=== PATIENT | male | born 1995 | race African-American/Black ===

== ENCOUNTER 2019-01-11 02:21 | Inpatient (IN) ==
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
[2019-01-11 02:51] LABS: Basophils % 0.3 %; Eosinophils % 0.3 %; Hematocrit 44.9 % (37.5-50.1); Hemoglobin 15.7 g/dL (12.9-16.9); Immature Granulocytes % 0.2 % (0-4); Lymphocytes # 1.4 K/mcL (0.6-4.6); Lymphocytes % 14.8 %; Mean Corpuscular Hemoglobin 30.8 pg (28.0-33.3); Monocytes # 0.6 K/mcL (0.0-1.3); Monocytes % 6.3 %; Neutrophils # 7.5 K/mcL (1.6-8.9); Platelet Count 191 K/mcL (140-400); Red Cell Distribution Width 12.4 % (11.5-14.5); Segmented Neutrophils % 78.1 %; White Blood Count 9.6 K/mcL (4.3-11.1)
[2019-01-11 03:10] LABS: Acetaminophen < 10 mcg/mL (10-20); Alanine Aminotransferase 17 Units/L (7-52); Albumin 4.6 g/dL (3.5-5.7); Albumin/Globulin Ratio 1.6 (1.1-2.2); Alkaline Phosphatase 82 Units/L (34-104); Aspartate Amino Transferase 24 Units/L (13-39); BUN/Creatinine Ratio 11 (6-26); Bilirubin,Direct 0.1 mg/dL (0.0-0.2); Bilirubin,Indirect 0.3 mg/dL (0.0-1.2); Bilirubin,Total 0.4 mg/dL (0.3-1.0); Blood Urea Nitrogen 13 mg/dL (6-20); Calcium 9.5 mg/dL (8.6-10.3); Carbon Dioxide 22 mEq/L (23-29); Chloride 100 mEq/L (98-107); Ethanol 141 mg/dL (Less than 10); Globulin 2.9 g/dL (2.4-3.5); Glucose 100 mg/dL (70-105); Osmolality,Calculated 292 (280-300); Potassium 3.6 mEq/L (3.5-5.1); Salicylate < 2.5 mg/dL (15.0-30.0); Sodium 141 mEq/L (136-145); Total Protein 7.5 g/dL (6.4-8.9); eGFR For African Americans > 60 (> 60); eGFR For Non-African Americans > 60 (> 60)
[2019-01-11 03:38] LABS: Amphetamine Screen,Urine Negative ng/mL (Cutoff=1000); Barbiturate Screen,Urine Negative ng/mL (Cutoff=200); Benzodiazepines Screen,Urine Negative ng/mL (Cutoff=200); Cannabinoid Screen,Urine Positive ng/mL (Cutoff = 50); Cocaine Screen,Urine Negative ng/mL (Cutoff= 300); Opiate Screen,Urine Negative ng/mL (Cutoff=300); Phencyclidine Screen,Urine Negative ng/mL (Cutoff=25)
[2019-01-11] MEDS ORDERED: Ibuprofen 800 MG TABLET PO ONE (07:49)
--- NOTE | 2019-01-11 08:10 | Emergency Department Note ---
Disposition Clinical Impression: Homicidal ideation Depression Qualifiers: Depression Type: other depression Qualified Code(s): F32.89 - Other specified depressive episodes Alcohol intoxication Qualifiers: Complication of substance-induced condition: uncomplicated Qualified Code(s): F10.920 - Alcohol use, unspecified with intoxication, uncomplicated Disposition: Still a Patient Condition: Fair Referrals: NONE,PCP [Primary Care Provider] - Time of Disposition: 13:18 Psych HPI - General Chief Complaint: ED Medical Clearance Stated Complaint: SI/HI Time Seen by Provider: 01/11/19 02:28 Source: patient Mode of arrival: private vehicle - History of Present Illness HPI Narrative: I did assume the case at 0 700, did review the patient's note, agreed history of present illness and review of systems, and examination. The patient however does have some pain also to the right foot on examination. This is over the lateral aspect of the right foot, x-ray has been ordered. The patient did have case discussed with psychiatric services here in the hospital. They are concerned about his overall well being and continued suicidal ideation however the patient is a alcoholic. The patient does drink on a daily basis they are concerned about him going through withdrawal and detox in the psychiatric floor, they wondered if the patient could be admitted to the medical service. The patient states that he feels he is calm down here in the emergency room. The patient still voices somehow homicidal ideation however as well. The patient at this point in time is going to be admitted to the hospitalist service in stable condition. He is overall medically clear in the emergency room however he does have the risk of possible withdrawal from alcohol. Case was discussed with psychiatry they requested admission to the medical team secondary to possible risk of alcohol withdrawal, however the patient is not actively withdrawing from alcohol. The patient at this point I did have case discussed with the hospitalist as well. They are not going to admit the patient, they will consult if needed from a standpoint on the psychiatric floor. However, at this point in time the patient is resting comfortably without signs of medical withdrawal and will be admitted to psychiatry. Final impression 1. Suicidal ideation 2. Depression 3. homicidal ideation Improves with: none Worsens with: alcohol Associated symptoms: Reports: denies other symptoms Treatments prior to arrival: none - Related Data Home Medications Medication Instructions Recorded Confirmed No Known Home Drugs 01/11/19 01/11/19 Allergies Allergy/AdvReac Type Severity Reaction Status Date / Time No Known Allergies Allergy Verified 08/16/18 16:08 Constitutional: Reports: as per HPI Eyes: Reports: as per HPI ENT ED: Reports: as per HPI Cardiovascular: Reports: as per HPI Respiratory: Reports: as per HPI Gastrointestinal: Reports: as per HPI Genitourinary: Reports: as per HPI Musculoskeletal: Reports: other (Right hand pain) Integumentary: Reports: abrasion (Left hand) Neurological: Reports: as per HPI Psychiatric: Reports: depression, suicidal thoughts, homicidal thoughts Endocrine: Reports: as per HPI Hematological/Lymphatic: Reports: as per HPI Allergic/Immunologic: Reports: as per HPI Past Medical History - Past Medical History Medical history: Reports: hypertension Surgical history: Reports: no surgical history Psychiatric history: Reports: anxiety, depression - Social History Smoking Status: Current every day smoker Smokeless Tobacco Status: No Alcohol use: Reports: occasionally, heavy, recent Drug use: Reports: marijuana Physical Exam - General Limitations: no limitations General appearance: alert Course Vital Signs Temperature 98.6 F 01/11/19 02:41 Pulse Rate 93 01/11/19 02:41 Respiratory Rate 20 01/11/19 02:41 Blood Pressure 151/78 01/11/19 02:41 O2 Sat by Pulse Oximetry 96 01/11/19 02:41 Temperature 98.7 F 01/11/19 11:06 Pulse Rate 82 01/11/19 11:06 Respiratory Rate 16 01/11/19 11:06 Blood Pressure 131/80 01/11/19 11:06 O2 Sat by Pulse Oximetry 96 01/11/19 11:06 Oxygen Delivery Oxygen Delivery Room Air Psych - Lab Data Result diagrams: 01/11/19 02:40 01/11/19 02:40 Lab Results 01/11/19 01/11/19 01/11/19 Range/Units 02:40 02:40 03:05 WBC 9.6 (4.3-11.1) K/mcL RBC 5.10 (4.19-5.50) M/mcL Hgb 15.7 (12.9-16.9) g/dL Hct 44.9 (37.5-50.1) % MCV 88.0 (83.0-100.0) fL MCH 30.8 (28.0-33.3) pg MCHC 35.0 (31.6-35.5) g/dL RDW 12.4 (11.5-14.5) % Plt Count 191 (140-400) K/mcL MPV 12.0 (9.4-12.4) fL Immature Gran % 0.2 (0-4) % Seg Neutrophils % 78.1 % Lymphocytes % 14.8 % Monocytes % 6.3 % Eosinophils % 0.3 % Basophils % 0.3 % Neutrophils # 7.5 (1.6-8.9) K/mcL Lymphocytes # 1.4 (0.6-4.6) K/mcL Monocytes # 0.6 (0.0-1.3) K/mcL Eosinophils # 0.0 (0.0-0.6) K/mcL Basophils # 0.0 (0.0-0.2) K/mcL Sodium 141 (136-145) mEq/L Potassium 3.6 (3.5-5.1) mEq/L Chloride 100 (98-107) mEq/L Carbon Dioxide 22 L (23-29) mEq/L BUN 13 (6-20) mg/dL Creatinine 1.22 (0.70-1.30) mg/dL Est GFR ( Amer) > 60 (> 60) Est GFR (Non-Af Amer) > 60 (> 60) BUN/Creatinine Ratio 11 (6-26) Glucose 100 (70-105) mg/dL Calculated Osmolality 292 (280-300) Calcium 9.5 (8.6-10.3) mg/dL Total Bilirubin 0.4 (0.3-1.0) mg/dL Direct Bilirubin 0.1 (0.0-0.2) mg/dL Indirect Bilirubin 0.3 (0.0-1.2) mg/dL AST 24 (13-39) Units/L ALT 17 (7-52) Units/L Alkaline Phosphatase 82 (34-104) Units/L Serum Total Protein 7.5 (6.4-8.9) g/dL Albumin 4.6 (3.5-5.7) g/dL Globulin 2.9 (2.4-3.5) g/dL Albumin/Globulin Ratio 1.6 (1.1-2.2) Salicylates < 2.5 L (15.0-30.0) mg/dL Urine Opiates Screen Negative (Zvhmoo=533) ng/mL Ur Buprenorphine Scrn Negative (Cutoff=5) ng/mL Acetaminophen < 10 L (10-20) mcg/mL Ur Barbiturates Screen Negative (Kqagdb=433) ng/mL Ur Phencyclidine Scrn Negative (Cutoff=25) ng/mL Ur Amphetamines Screen Negative (Xsgwco=6045) ng/mL U Benzodiazepines Scrn Negative (Jngfrm=765) ng/mL Urine Cocaine Screen Negative (Cutoff= 300) ng/mL U Marijuana (THC) Screen Positive H (Cutoff = 50) ng/mL Ur Drug Screen Interp See Below Ethyl Alcohol 141 H (Less than 10) mg/dL 01/11/19 01/11/19 01/11/19 Range/Units 05:23 06:23 12:00 WBC (4.3-11.1) K/mcL RBC (4.19-5.50) M/mcL Hgb (12.9-16.9) g/dL Hct (37.5-50.1) % MCV (83.0-100.0) fL MCH (28.0-33.3) pg MCHC (31.6-35.5) g/dL RDW (11.5-14.5) % Plt Count (140-400) K/mcL MPV (9.4-12.4) fL Immature Gran % (0-4) % Seg Neutrophils % % Lymphocytes % % Monocytes % % Eosinophils % % Basophils % % Neutrophils # (1.6-8.9) K/mcL Lymphocytes # (0.6-4.6) K/mcL Monocytes # (0.0-1.3) K/mcL Eosinophils # (0.0-0.6) K/mcL Basophils # (0.0-0.2) K/mcL Sodium (136-145) mEq/L Potassium (3.5-5.1) mEq/L Chloride (98-107) mEq/L Carbon Dioxide (23-29) mEq/L BUN (6-20) mg/dL Creatinine (0.70-1.30) mg/dL Est GFR ( Amer) (> 60) Est GFR (Non-Af Amer) (> 60) BUN/Creatinine Ratio (6-26) Glucose (70-105) mg/dL Calculated Osmolality (280-300) Calcium (8.6-10.3) mg/dL Total Bilirubin (0.3-1.0) mg/dL Direct Bilirubin (0.0-0.2) mg/dL Indirect Bilirubin (0.0-1.2) mg/dL AST (13-39) Units/L ALT (7-52) Units/L Alkaline Phosphatase (34-104) Units/L Serum Total Protein (6.4-8.9) g/dL Albumin (3.5-5.7) g/dL Globulin (2.4-3.5) g/dL Albumin/Globulin Ratio (1.1-2.2) Salicylates (15.0-30.0) mg/dL Urine Opiates Screen (Bpcvnd=502) ng/mL Ur Buprenorphine Scrn (Cutoff=5) ng/mL Acetaminophen (10-20) mcg/mL Ur Barbiturates Screen (Iqlqzc=828) ng/mL Ur Phencyclidine Scrn (Cutoff=25) ng/mL Ur Amphetamines Screen (Cblabt=4353) ng/mL U Benzodiazepines Scrn (Pmcmkc=119) ng/mL Urine Cocaine Screen (Cutoff= 300) ng/mL U Marijuana (THC) Screen (Cutoff = 50) ng/mL Ur Drug Screen Interp Ethyl Alcohol 94 H 77 H < 10 (Less than 10) mg/dL Psychiatric Medical Clearance - Medical Clearance Checklist Medical History: No Social History Section defined Current Vitals: Last Vital Signs Temp 98.7 F 01/11/19 11:06 Pulse 82 01/11/19 11:06 Resp 16 01/11/19 11:06 BP 131/80 01/11/19 11:06 Pulse Ox 96 01/11/19 11:06 Psychiatric Lab Panel: Drug Levels and Toxicity 01/11/19 01/11/19 01/11/19 02:40 03:05 05:23 Urine Opiates Screen Negative Acetaminophen < 10 L Ur Barbiturates Screen Negative Ur Phencyclidine Scrn Negative Ur Amphetamines Screen Negative U Benzodiazepines Scrn Negative Urine Cocaine Screen Negative U Marijuana (THC) Screen Positive H Ethyl Alcohol 141 H 94 H 01/11/19 01/11/19 06:23 12:00 Urine Opiates Screen Acetaminophen Ur Barbiturates Screen Ur Phencyclidine Scrn Ur Amphetamines Screen U Benzodiazepines Scrn Urine Cocaine Screen U Marijuana (THC) Screen Ethyl Alcohol 77 H < 10 Abnormal Labs: Abnormal lab results Carbon Dioxide 22 mEq/L (23-29) L 01/11/19 02:40 Salicylates < 2.5 mg/dL (15.0-30.0) L 01/11/19 02:40 Acetaminophen < 10 mcg/mL (10-20) L 01/11/19 02:40 U Marijuana (THC) Screen Positive ng/mL (Cutoff = 50) H 01/11/19 03:05 Ethyl Alcohol 77 mg/dL (Less than 10) H 01/11/19 06:23 Statement of Medical Clearance: I have evaluated the patient, reviewed diagnostic information, and certify that the patient's medical condition is sufficiently stable that transfer to the psychiatric unit does not pose a significant risk of deterioration.
--- NOTE | 2019-01-11 14:11 | Event Note ---
Date of Encounter: 01/11/19 Time of Encounter: 13:41 I was contacted by the ER staff to require an invalid about admitting the patient to acute hospital bed for the possibility of alcohol withdrawal. I reviewed the patient's chart and the patient's he was score has been 0 since time of the admission , he last drink was last night around 10:00 PM. The patient also stated that he never had a history of alcohol withdrawal and he has no comorbidities . The patient stated that in several occasion he did not drink for more than 48 hours or almost a week with no withdrawal symptoms. Repeat alcohol level was less than 10 . I contacted care management team as well as psych testing consultant and we will discuss the plan of care. There was a clinic in agreement that the current clinical evaluation of the patient would not warrant an acute bed assignment. Given that 14 hours after last alcohol drink see was score is 0, the patient could be managed on the psych unit. Dr. Allen graciously was agreeable to accept the patient to the psych unit . We will be happy to consult if any other urgent medical issue arise .
[2019-01-11] MEDS ORDERED: Mag Hydrox/Al Hydrox/Simeth 30 ML UDC PO PRN (16:10)
[2019-01-11] MEDS ORDERED: Acetaminophen 325 MG TABLET PO PRN (16:10)
[2019-01-11] MEDS ORDERED: MOM Conc 10 ML UD.LIQ PO PRN (16:10)
[2019-01-11] MEDS ORDERED: *HR* LORazepam 1 MG TABLET PO PRN ×2 (16:10→16:29)
[2019-01-11] MEDS ORDERED: Haloperidol Lactate 5 MG/ML VIAL IM PRN (16:10)
[2019-01-11] MEDS ORDERED: *HR* LORazepam 2 MG/ML VIAL IM PRN (16:10)
[2019-01-11] MEDS: traZODone 50 MG TABLET PO PRN (21:22)
[2019-01-11] MEDS: hydrOXYzine pamoate 25 MG CAPSULE PO PRN (21:22)
[2019-01-12] MEDS: Folic Acid 1 MG TABLET PO SCH (09:09)
[2019-01-12] MEDS: Thiamine (B-1) 100 MG TABLET PO SCH (09:09)
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
[2019-01-12] MEDS: hydrOXYzine pamoate 25 MG CAPSULE PO PRN (22:00)
[2019-01-12] MEDS: traZODone 50 MG TABLET PO PRN (22:00)
[2019-01-13] MEDS: Folic Acid 1 MG TABLET PO SCH (09:52)
[2019-01-13] MEDS: Thiamine (B-1) 100 MG TABLET PO SCH (09:52)
[2019-01-13 10:06] VITALS: BP 132/77
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
== END 2019-01-13 15:20 | disposition home or self-care (01) | DRG 885 ==
LOC: EMEROOARM 02:21 → 1ANU 15:54
PROVIDERS: ADMIT Psychiatry & Neurology Psychiatry; ATTEND Psychiatry & Neurology Psychiatry

== ENCOUNTER 2022-02-13 19:34 | Inpatient (IN) ==
[2022-02-13 20:15] LABS: Amorphous Sediment,Urine Few per hpf (None-Few); Bacteria,Urine Few per hpf (None-Few); Bilirubin,Urine Negative (Negative); Blood,Urine Negative (Negative); Clarity,Urine Ex.Turbid (Clear); Color,Urine Yellow (Yellow); Glucose,Urine (UA) Normal (Normal); Ketones,Urine 20 mg/dL (Negative); Leukocyte Esterase,Urine Negative (Negative); Mucus,Urine Many per lpf (None-Few); Nitrite,Urine Negative (Negative); Protein,Urine 50 mg/dL (Neg-Trace); Specific Gravity,Urine > 1.030 (1.010-1.025); Squamous Epithelial Cell,Urine Few per hpf (None-Few); WBC,Urine 0-3 per hpf (0-3)
[2022-02-13 20:18] LABS: Basophils % 0.4 %; Eosinophils # 0.1 K/mcL (0.0-0.6); Eosinophils % 0.6 %; Hematocrit 50.9 % (37.5-50.1); Hemoglobin 17.4 g/dL (12.9-16.9); Immature Granulocytes % 0.2 % (0-4); Lymphocytes # 1.3 K/mcL (0.6-4.6); Mean Corpuscular HGB Conc 34.2 g/dL (31.6-35.5); Mean Corpuscular Hemoglobin 30.3 pg (28.0-33.3); Mean Corpuscular Volume 88.7 fL (83.0-100.0); Mean Platelet Volume 11.8 fL (9.4-12.4); Monocytes # 0.8 K/mcL (0.0-1.3); Monocytes % 7.6 %; Neutrophils # 8.4 K/mcL (1.6-8.9); Platelet Count 220 K/mcL (140-400); Red Blood Count 5.74 M/mcL (4.19-5.50); Red Cell Distribution Width 12.8 % (11.5-14.5); Segmented Neutrophils % 79.2 %; White Blood Count 10.5 K/mcL (4.3-11.1)
[2022-02-13 20:28] LABS: Amphetamine Screen,Urine Negative ng/mL (Cutoff=1000); Barbiturate Screen,Urine Negative ng/mL (Cutoff=200); Benzodiazepines Screen,Urine Negative ng/mL (Cutoff=200); Cannabinoid Screen,Urine Positive ng/mL (Cutoff = 50); Cocaine Screen,Urine Negative ng/mL (Cutoff= 300); Opiate Screen,Urine Negative ng/mL (Cutoff=300); Phencyclidine Screen,Urine Negative ng/mL (Cutoff=25)
[2022-02-13 20:41] LABS: Acetaminophen < 10 mcg/mL (10-20); BUN/Creatinine Ratio 9 (6-26); Blood Urea Nitrogen 9 mg/dL (6-20); Calcium 9.5 mg/dL (8.6-10.3); Carbon Dioxide 28 mEq/L (23-29); Chloride 102 mEq/L (98-107); Glucose 112 mg/dL (70-105); Osmolality,Calculated 287 (280-300); Salicylate < 2.5 mg/dL (15.0-30.0); Sodium 139 mEq/L (136-145)
[2022-02-13 20:44] LABS: Ethanol 16 mg/dL (Less than 10)
[2022-02-13 20:56] LABS: Influenza A PCR Negative (Negative); Influenza B PCR Negative (Negative); Resp. Syncytial Virus PCR Negative (Negative)
[2022-02-13 20:57] LABS: SARS-CoV-2 by PCR (In House) Negative (Negative)
[2022-02-13] MEDS ORDERED: haloperidoL 5 MG TABLET PO PRN (23:03)
[2022-02-13] MEDS ORDERED: *HR* LORazepam 1 MG TABLET PO PRN (23:03)
[2022-02-13] MEDS ORDERED: Haloperidol Lactate 5 MG/ML VIAL IM PRN (23:03)
[2022-02-13] MEDS ORDERED: *HR* LORazepam 2 MG/ML VIAL IM PRN (23:03)
[2022-02-14] MEDS: hydrOXYzine pamoate 25 MG CAPSULE PO PRN (01:39)
[2022-02-14] MEDS: Acetaminophen 325 MG TABLET PO PRN ×2 (01:39→14:49)
[2022-02-14] MEDS: traZODone 50 MG TABLET PO PRN (02:04)
[2022-02-14] MEDS ORDERED: Mag Hydrox/Al Hydrox/Simeth 30 ML UDC PO PRN (08:11)
[2022-02-14] MEDS ORDERED: MOM Conc 10 ML UD.LIQ PO PRN (08:11)
[2022-02-14 12:31] LABS: Albumin 4.6 g/dL (3.5-5.7); Albumin/Globulin Ratio 1.5 (1.1-2.2); Bilirubin,Direct 0.2 mg/dL (0.0-0.2); Bilirubin,Indirect 0.7 mg/dL (0.0-1.0); Bilirubin,Total 0.9 mg/dL (0.3-1.0); Globulin 3.1 g/dL (2.4-3.5); Total Protein 7.7 g/dL (6.4-8.9)
[2022-02-15] MEDS: Naltrexone HCl 50 MG TABLET PO SCH (11:55)
[2022-02-15] MEDS: hydrOXYzine pamoate 25 MG CAPSULE PO PRN ×2 (15:06→21:27)
[2022-02-15] MEDS: traZODone 50 MG TABLET PO PRN (21:27)
[2022-02-16] MEDS: Naltrexone HCl 50 MG TABLET PO SCH (08:36)
[2022-02-16 09:15] VITALS: BP 126/77; PULSE 80; TEMP 98.2; O2SAT 97
== END 2022-02-16 12:20 | disposition home or self-care (01) | DRG 885 ==
LOC: EMEROOARM 19:34 → 1ANU 22:53
PROVIDERS: ADMIT Psychiatry & Neurology Psychiatry; ATTEND Psychiatry & Neurology Psychiatry